=== PATIENT | female | born 1945 | race Caucasian/White ===

== ENCOUNTER 2019-09-16 14:42 | Inpatient (IN) | payer OTHER, MEDICARE ==
[~2019-09-16] VITALS: Ht 165.1 cm; Wt 93.9 kg
--- NOTE | 2019-09-16 14:50 | NUR ---
73 Y/O FEMALE PRESENTED TO ED C/O LOWER LEFT FLANK TO ABDOMEN PAIN. PT RATES PAIN 7/10, DESCRIBES PAIN STABBING / BURNING SENSATION. PT STATES SHE THOUGHT IT WAS A UTI AND HAS HX OF UTI BUT WOKE UP THIS MORNING AND IT HAD MOVED FROM HER LEFT FLANK TO HER ABDOMEN. PT DENIES N/V/D/F. PT DENIES DYSURIA. PT RESTING IN BED AT LOWEST POSITION, HOB ELEVATED, SIDE RAILS X1. PMH: HTN, ANXIETY, RX: LISINOPRIL, ATENTOLOL, (STATIN - PT UNSURE NAME), ATIVAN AX: CODEINE
--- NOTE | 2019-09-16 14:58 | NUR ---
PT AMB TO BED 4. HANDED ON URINE CUP.
--- NOTE | 2019-09-16 15:05 | NUR ---
PA AT BEDSIDE EVALUATING PT
[2019-09-16] MEDS ORDERED: KETOROLAC 60 MG/2 ML VIAL IM ONE (15:10)
[2019-09-16 15:55] LABS: BASOPHILS % (AUTO) 0.5 % (0.0-2.0); EOSINOPHILS # (AUTO) 0.2 K/uL (0-0.4); EOSINOPHILS % (AUTO) 2.3 % (0.0-4.0); HEMATOCRIT 43.8 % (36-48); HEMOGLOBIN 14.4 g/dL (12.0-16.0); LYMPHOCYTES # (AUTO) 1.9 K/uL (2.5-16.5); LYMPHOCYTES % (AUTO) 21.8 % (20.5-51.1); MEAN CORPUSCULAR HEMOGLOBIN 29 pg (27-31); MEAN CORPUSCULAR HGB CONC 33 g/dL (33-37); MEAN CORPUSCULAR VOLUME 86.5 fL (80-94); MONOCYTES # (AUTO) 0.4 K/uL (0.8-1.0); MONOCYTES % (AUTO) 4.9 % (1.7-9.3); NEUTROPHILS % (AUTO) 70.5 % (42.2-75.2); PLATELET COUNT (AUTO) 214 K/uL (140-450); RED BLOOD CELL COUNT(AUTO) 5.06 MIL/uL (4.20-5.40); RED CELL DISTRIBUTION WIDTH 14.2 % (11.6-13.7); WHITE BLOOD COUNT (AUTO) 8.5 K/uL (4.8-10.8)
[2019-09-16 16:06] LABS: APPEARANCE,URINE CLEAR (CLEAR); BILIRUBIN,URINE NEGATIVE (NEGATIVE); BLOOD, URINE 3+ (NEGATIVE); COLOR,URINE YELLOW (YELLOW); LEUKOCYTE ESTERASE ,URINE NEGATIVE (NEGATIVE); NITRITE, URINE NEGATIVE (NEGATIVE); UGLUCOSE NEGATIVE (NEGATIVE)
[2019-09-16 16:07] LABS: ALBUMIN 3.8 g/dL (3.4-5.0); ANION GAP 11.5 (8-16); ASPARTATE AMINOTRANSFERASE 13 U/L (15-37); CARBON DIOXIDE 27.1 mmol/L (21-32); CHLORIDE 104 mmol/L (98-107); CREATININE 0.9 mg/dL (0.6-1.3); GLUCOSE 108 mg/dL (74-106); LIPASE 113 U/L (73-393); POTASSIUM 3.6 mmol/L (3.5-5.1); SODIUM SERUM 139 mmol/L (136-145); TOTAL BILIRUBIN 0.4 mg/dL (0.0-1.0); UREA NITROGEN, BLOOD 21 mg/dL (7-18)
[2019-09-16 16:33] LABS: RBC,URINE >100 /HPF (0-5)
[2019-09-16 16:34] LABS: WBC,URINE 0-5 /HPF (0-5)
[2019-09-16] MEDS: NACL 0.9% 1,000 ML IV SCH ×2 (16:56→23:36)
--- NOTE | 2019-09-16 16:56 | NUR ---
PT RESTING IN BED AT LOWEST POSITION, HOB ELEVATED, SIDE RAILS X 1.
[2019-09-16] MEDS ORDERED: DOCUSATE SODIUM 100 MG GELCAP PO PRN (17:00)
[2019-09-16] MEDS ORDERED: ACETAMINOPHEN 325 MG TAB PO PRN (17:00)
[2019-09-16] MEDS ORDERED: ONDANSETRON 4 MG/2 ML VIAL IM/IVP PRN (17:00)
[2019-09-16] MEDS ORDERED: LISI-420 PO (17:17)
[2019-09-16] MEDS ORDERED: METO25TE2 PO (17:17)
[2019-09-16] MEDS ORDERED: ASPI81CT95 PO (17:17)
[2019-09-16] MEDS ORDERED: PRAV20TA5 PO (17:17)
[2019-09-16] MEDS ORDERED: ATI.5 PO (17:17)
[2019-09-16] MEDS ORDERED: ORE25 PO (17:17)
[2019-09-16] MEDS ORDERED: KETOROLAC 15 MG/ML VIAL IM PRN (17:20)
[2019-09-16 17:42] LABS: PROTHROMBIN TIME 9.3 secs (10.8-13.4)
[2019-09-16] MEDS ORDERED: METO25TA PO (18:00)
[2019-09-16] MEDS ORDERED: TAMSULOSIN 0.4 MG CAP PO SCH (18:00)
[2019-09-16 18:07] LABS: CHOL/HDL RATIO 5.1 (1-4.5); PHOSPHORUS 3.8 mg/dL (2.5-4.9)
[2019-09-16] MEDS ORDERED: LORazepam 1 MG TAB PO ONE (18:10)
--- NOTE | 2019-09-16 18:11 | NUR ---
RECEIVED BEDSIDE REPORT FROM ER NURSE. AOX4, NO SOB, FLACC 0, RESPIRATIONS ARE EVEN UNLABORED. SKIN INTACT. PT IS AMBULATORY. ON RA. IV INTACT AND PATENT. IV SITE RH 20G. PLAN OF CARE UPDATED. SAFETY MEASURES IN PLACE. BED IN LOW POSITION. CALL LIGHT WITHIN REACH. WILL CONTINUE TO MONITOR.
--- NOTE | 2019-09-16 18:18 | NUR ---
Patient will be admitted to care of DR. GARCES. Admited to TELEMETRY. Will go to room 108B. Belongings list completed. Report to ALEXIS ORTIZ.
[2019-09-16 18:25] LABS: BARBITURATE, URINE NEGATIVE ng/ml (NEG <=200); BENZODIAZEPINE, URINE POSITIVE ng/mL (NEG <=200); CANNABINOID, URINE NEGATIVE ng/mL (NEG <=50); COCAINE, URINE NEGATIVE ng/mL (NEG <=300); OPIATE, URINE NEGATIVE ng/mL (NEG <=2000); PHENCYCLIDINE SCREEN,URINE NEGATIVE ng/mL (NEG <=25)
--- NOTE | 2019-09-16 18:30 | NUR ---
STARTED ON NS 150CC/HR. ROCEPHIN IVPB GIVEN.
[2019-09-16 18:33] LABS: FREE T4 (FREE THYROXINE) 1.17 ng/dL (0.76-1.46); MAGNESIUM 1.8 mg/dL (1.8-2.4); THYROID STIMULATING HORMONE 3.47 uIU/mL (0.34-3.74)
--- NOTE | 2019-09-16 19:20 | NUR ---
RECEIVED REPORT FROM DAY SHIFT NURSE. PATIENT AWAKE, ALERT AND ORIENTED X 4. ON ROOM AIR. RESPIRATIONS EVEN AND UNLABORED. SKIN INTACT. WITH IV SITE PATENT AND INTACT WITH IVF DRAINING. NO PAIN OR DISTRESS NOTED. REVIEWED PLAN OF CARE TO PATIENT. PT VERBALIZED UNDERSTANDING. SAFETY MEASURES IN PLACE. CALL LIGHT WITHIN REACH. WILL CONTINUE TO MONITOR PATIENT.
--- NOTE | 2019-09-16 19:55 | NUR ---
EKG COMPLETED. RESULT TRANSFERRED AND A COPY PLACED IN PATIENT'S FOLDER.
[2019-09-16 20:00] VITALS: BP 164/91
[2019-09-16] MEDS: METOPROLOL 25 MG TAB PO SCH (20:20)
[2019-09-16] MEDS: LISINOPRIL 20 MG TAB PO SCH (20:20)
[2019-09-16] MEDS: ASPIRIN 81 MG TAB.CHEW PO SCH (20:20)
[2019-09-16] MEDS: SIMVASTATIN 10 MG TAB PO SCH (20:25)
--- NOTE | 2019-09-16 20:25 | NUR ---
ALL SCHEDULED PO MEDICATIONS GIVEN. PATIENT TOLERATED WELL. NO ADVERSE EFFECT NOTED. WILL CONTINUE TO MONITOR PT.
[2019-09-16] MEDS ORDERED: LORATADINE 10 MG TAB PO SCH (21:00)
--- NOTE | 2019-09-16 23:40 | NUR ---
PATIENT IS SLEEPING COMFORTABLY WITH NO DISTRESS NOTED. ON ROOM AIR, RESPIRATIONS EVEN AND UNLABORED. WILL CONTINUE TO MONITOR PATIENT.
[2019-09-17] VITALS: BP 146/66
[2019-09-17] MEDS: MORPHINE SULFATE 2 MG/ML SYR IVP PRN (02:39)
--- NOTE | 2019-09-17 02:39 | NUR ---
GIVEN MORPHINE 1MG FOR LEFT FLANK PAIN 11/29. PT TOLERATED WELL. WASTED 1MG.
[2019-09-17 04:00] VITALS: BP 158/61
--- NOTE | 2019-09-17 04:00 | NUR ---
VITAL SIGNS CHECKED. PAIN REDUCED TO 2/10. PATIENT IS AWAKE, ABOUT TO SLEEP AGAIN. NO DISTRESS NOTED. ON ROOM AIR, RESPIRATIONS EVEN AND UNLABORED. WILL CONTINUE TO MONITOR PATIENT.
--- NOTE | 2019-09-17 04:45 | NUR ---
NOTICED THE CONSENT FOR PROCEDURE IS NOT PRESENT. REPORTED TO RESIDENT AND ASKED IF RN SHOULD GET THE CONSENT. DR. PATIÑO WANT TO WAIT UNTIL SURGEON COMES IN THE MORNING.
[2019-09-17] MEDS: NACL 0.9% 1,000 ML IV SCH (06:19)
[2019-09-17 06:28] LABS: BASOPHILS % (AUTO) 0.7 % (0.0-2.0); EOSINOPHILS # (AUTO) 0.1 K/uL (0-0.4); EOSINOPHILS % (AUTO) 1.4 % (0.0-4.0); HEMATOCRIT 39.5 % (36-48); HEMOGLOBIN 13.1 g/dL (12.0-16.0); LYMPHOCYTES # (AUTO) 1.4 K/uL (2.5-16.5); MEAN CORPUSCULAR HEMOGLOBIN 28 pg (27-31); MEAN CORPUSCULAR HGB CONC 33 g/dL (33-37); MEAN CORPUSCULAR VOLUME 85.7 fL (80-94); MONOCYTES # (AUTO) 0.3 K/uL (0.8-1.0); MONOCYTES % (AUTO) 5.6 % (1.7-9.3); NEUTROPHILS # (AUTO) 4.2 K/uL (1.8-7.7); NEUTROPHILS % (AUTO) 69.3 % (42.2-75.2); PLATELET COUNT (AUTO) 172 K/uL (140-450); RED BLOOD CELL COUNT(AUTO) 4.61 MIL/uL (4.20-5.40); RED CELL DISTRIBUTION WIDTH 14.6 % (11.6-13.7); WHITE BLOOD COUNT (AUTO) 6.1 K/uL (4.8-10.8)
[2019-09-17 06:47] LABS: ANION GAP 11.2 (8-16); CARBON DIOXIDE 28.3 mmol/L (21-32); CHLORIDE 106 mmol/L (98-107); CREATININE 0.7 mg/dL (0.6-1.3); GLUCOSE 93 mg/dL (74-106); POTASSIUM 3.5 mmol/L (3.5-5.1); SODIUM SERUM 142 mmol/L (136-145); UREA NITROGEN, BLOOD 16 mg/dL (7-18)
[2019-09-17 06:48] LABS: MAGNESIUM 1.8 mg/dL (1.8-2.4); PHOSPHORUS 3.5 mg/dL (2.5-4.9)
--- NOTE | 2019-09-17 06:59 | NUR ---
PT IN STABLE CONDITION. WILL ENDORSE PT TO DAY SHIFT NURSE FOR CONTINUOUS CARE.
--- NOTE | 2019-09-17 07:05 | NUR ---
RECEIVED PATIENT FROM NIGHT NURSE. PATIENT IS ALERT AND AWAKE. PATIENT IS ON RA, NO RESPIRATORY DISTRESS, BREATHING UNLABORED. BED IS LOW, CALL LIGHT WITHIN REACH. PLAN OF CARE DISCUSSED WITH PATIENT AND PATIENT VERBALIZED UNDERSTANDING. WILL CONTINUE TO MONITOR.
[2019-09-17] MEDS ORDERED: ONDANSETRON 4 MG/2 ML VIAL ONE (07:25)
[2019-09-17] MEDS ORDERED: PROPOFOL 200 MG/20 ML VIAL IV ONE (07:25)
[2019-09-17] MEDS ORDERED: fentaNYL 0.05 MG/ML VIAL ONE (07:25)
[2019-09-17] MEDS ORDERED: SEVOFLURANE 250 ML BTL INH ONE (07:25)
[2019-09-17] MEDS ORDERED: MIDAZOLAM 2 MG/2 ML VIAL ONE (07:25)
--- NOTE | 2019-09-17 07:25 | NUR ---
PATIENT WENT TO OR FOR PROCEDURE. PATIENT LEFT IN STABLE CONDITION. Addendum: 09/17/19 at 0743 by Mary Velasquez RN CONSENT WILL BE OBTAINED IN THE OR PER OR NURSES.
[2019-09-17 08:00] VITALS: BP 186/70
[2019-09-17] MEDS ORDERED: ONDANSETRON 4 MG/2 ML VIAL IVP PRN (08:30)
[2019-09-17] MEDS ORDERED: LACTATED RINGERS 1,000 ML IV SCH (08:30)
[2019-09-17] MEDS ORDERED: diphenhydrAMINE 50 MG/ML VIAL IVP PRN (08:30)
[2019-09-17] MEDS ORDERED: HYDROmorphone 1 MG/ML AMP IVP PRN ×2 (08:30→11:05)
[2019-09-17] MEDS ORDERED: HYDROCHLOROTHIAZIDE 25 MG TAB PO SCH ×2 (09:00→13:01)
[2019-09-17] MEDS ORDERED: PANTOPRAZOLE 40 MG TABEC PO ONE (09:00)
--- NOTE | 2019-09-17 09:00 | NUR ---
RECEIVED PT. FROM OR NURSETALHA. PT. ABLE TO AMBULATE TOWARDS BATHROOM, VERBALIZES NO PAIN AT THE MOMENT BUT COMPLAINS OF URINARY URGENCY. URINE IS BLOOD TINGE. V/S TAKEN BP 186/70, O2 STAT 91%, TEMP 97.8F, HR 76, RR 20. NO SIGNS OF DISTRESS NOTED. WILL CONTINUE TO MONITOR.
--- NOTE | 2019-09-17 09:15 | NUR ---
PATIENT HAS BEEN SCREENED AND CATEGORIZED MODERATE NUTRITION RISK. PATIENT WILL BE SEEN WITHIN 3-5 DAYS OF ADMISSION. 09/19/19 09/21/[address]
[2019-09-17] MEDS: LACTOBACILLUS RHAMNOSUS GG 1 EACH CAP PO SCH (09:31)
[2019-09-17] MEDS: METOPROLOL 25 MG TAB PO SCH ×2 (09:33→21:15)
[2019-09-17] MEDS: LISINOPRIL 20 MG TAB PO SCH ×2 (09:33→21:15)
[2019-09-17] MEDS: TAMSULOSIN 0.4 MG CAP PO SCH (09:34)
[2019-09-17] MEDS: LORATADINE 10 MG TAB PO SCH (09:34)
[2019-09-17] MEDS: ASPIRIN 81 MG TAB.CHEW PO SCH (09:34)
[2019-09-17] MEDS: KETOROLAC 15 MG/ML VIAL IM PRN ×2 (09:35→21:52)
--- NOTE | 2019-09-17 09:45 | NUR ---
PT. COMPLAINS OF BLADDER PAIN 10/29. WILL MEDICATE WITH TORADOL IVP. WILL CONTINUE TO MONITOR.
--- NOTE | 2019-09-17 09:51 | NUR ---
MORNING MEDICATIONS GIVEN. NO SIGNS OF DISTRESS. BP 186/70, HR 84. WILL CONTINUE TO MONITOR.
--- NOTE | 2019-09-17 10:59 | NUR ---
DISCHARGE PLANNING: THIS IS A 73 Y/O FEMALE PATIENT FROM HOME, WHO CAME IN DUE TO BACK PAIN. PAST MEDICAL HISTORY INCLUDE OBESITY, HTN, GERD, HIATAL HERNIA, SKIN CANCER AND RECURRENT UTI'S. INITIAL DIAGNOSIS OF OBSTRUCTIVE UROPATHY. CURRENT LABS WNL. CT ABD/PELVIS ON ADMISSION SHOWED OBSTRUCTING CALCULUS AT THE LEFT URETEROPELVIC JUNCTION. CXR SHOWED MILD LEFT BASILAR ATELECTASIS. S/P LEFT URETERAL STENT PLACEMENT BY DR. DONG. DC PLAN BACK TO HOME ONCE STABLE
--- NOTE | 2019-09-17 11:20 | NUR ---
SPOKE TO DR. BULLOCK ABOUT PT'S PERSISTENT HIGH SBP 188/75 AND BLADDER PAIN OF 6/10. NEW ORDERS TO GIVE DILAUDID 0.5MG IVP AND STOP NS FLUID FOR 3 HOURS. WILL FOLLOW THROUGH.
--- NOTE | 2019-09-17 11:30 | NUR ---
DILAUDID IVP GIVEN FOR BLADDER PAIN OF 09/29. BP 174/86, HR 71. PT. VERBALIZES DIZZINESS RIGHT AFTER. WILL REASSESS AFTER 5 MINS.
--- NOTE | 2019-09-17 11:35 | NUR ---
REASSESS PT., NO SIGNS OF DISTRESS NOTED. PT. VERBALIZES LESSER PAIN AND DIZZINESS. WILL CONTINUE TO MONITOR.
[2019-09-17 12:00] VITALS: BP 152/60
--- NOTE | 2019-09-17 12:50 | NUR ---
SPOKE TO DR ACHARYA TO POSSIBLE DISCHARGE TODAY PER DR DONG RECOMMENDATION. DR ACHARYA SUGGESTED PATIENT TO STAY ANOTHER NIGHT TO CONTINUE MONITORING HER LABS AND VITAL SIGNS. PATIENT IS AWARE AND VERBALIZED UNDERSTANDING. WILL CONTINUE TO MONITOR.
--- NOTE | 2019-09-17 12:55 | NUR ---
PATIENT'S DAUGHTER, VÍCTOR MADE AWARE OF DISCHARGE PLANNING. DAUGHTER VERBALIZED UNDERSTANDING. WILL CONTINUE TO MONITOR.
[2019-09-17] MEDS ORDERED: hydrALAZINE 20 MG/ML VIAL IVP PRN (13:15)
--- NOTE | 2019-09-17 15:39 | NUR ---
JEWELRY DESIGNER NOTE: Basic Screen: Yes High Risk DC Screen [place]: [place] Relationship: Pre-Admission Living Arrangements: Lives with Other Prior ADL Independent Current Home Health Name/Tel: N/A Current DME/02 Name/Tel: N/A Current Hospice Name/Tel: N/A Current Dialysis Name/Tel: /A Healthcare Decision Maker: Patient Advance Directive No Physician Orders for Life Sustaining Treatment Form No Patient/Family Have Educational Needs No Discipline: Case Mgt/Social Svcs Tentative Discharge Plan/Destination: No Needs Identified Will require assistance post discharge: No Referred to Manager Intensive Care: No Tentative Discharge Plan Summary: PATIENT IS A 73-YEAR-OLD FEMALE ADMITTED FOR OBSTRUCTIVE UROPATHY. PATIENT HAS PMHX OF OBESITY, HTN, TIM, GERD, HIATAL HERNIA, DYSLIPEDEMIA, RECURRENT UTIS, AND SKIN CANCER. PATIENT WAS ADMITTED FROM HOME WHERE HE LIVES WITH AND DAUGHTER. SW MET WITH PATIENT AT BEDSIDE TO VERIFY DEMOGRAPHICS. PER PATIENT, SHE IS INDEPENDENT WITH ALL ADLS AND REPORTS NO HISTORY OF SUBSTANCE ABUSE OR MENTAL HEALTH. TENTATIVE DISCHARGE PLAN IS FOR PATIENT TO RETURN HOME. NO FURTHER NEEDS IDENTIFIED. Signature: BOB VALENZUELA Date: September 17, 2019 Time: 15:38
[2019-09-17 16:00] VITALS: BP 143/74
--- NOTE | 2019-09-17 16:30 | NUR ---
PT. VERBALIZES CONCERN ON PERSISTENT HEMATURIA. INFORMED DR. ACHARYA ABOUT THE ISSUE. DR. ACHARYA CLAIMS THAT IT IS NORMAL AFTER PROCEDURE. WILL INFORM PT. AND CONTINUE TO MONITOR.
--- NOTE | 2019-09-17 17:00 | NUR ---
DR. DONG ON THE PHONE WITH PT. NEW ORDERS GIVEN FOR BLADDER PAIN. WILL CONTINUE TO MONITOR.
[2019-09-17] MEDS: PHENAZOPYRIDINE 100 MG TAB PO PRN (18:17)
--- NOTE | 2019-09-17 18:20 | NUR ---
PYRIDIUM PO GIVEN FOR BLADDER PAIN OF 4/10. NO SIGNS OF DISTRESS NOTED. SIDE EFFECTS OF MEDICATION TAUGHT TO PT. PT. VERBALIZES UNDERSTANDING. WILL CONTINUE TO MONITOR.
--- NOTE | 2019-09-17 19:07 | NUR ---
PATIENT ENDORSED TO NIGHT NURSE. PATIENT IN STABLE CONDITION.
[2019-09-17 20:00] VITALS: BP 147/83
[2019-09-17] MEDS: SIMVASTATIN 10 MG TAB PO SCH (21:15)
--- NOTE | 2019-09-17 21:15 | NUR ---
DUE PO MEDICATIONS GIVEN.
--- NOTE | 2019-09-17 21:35 | NUR ---
COMPLAINED OF MOSQUITOES OR BUGS BITING HER. SHOWED SOME ROUND REDNESS (2) IN HER LEFT LEG AND STATED HER LEFT LATERAL ASPECT OF HER FOOT HAVE SOME ITCHINESS. WILL INFORM .
[2019-09-17] MEDS ORDERED: DIPHENHYDRAMINE HCL/ZINC ACET 28 GM TUBE TP PRN (21:40)
[2019-09-18] VITALS: BP 145/74
[2019-09-18] MEDS: MORPHINE SULFATE 2 MG/ML SYR IVP PRN ×3 (00:16→08:45)
[2019-09-18] MEDS ORDERED: KETOROLAC 15 MG/ML VIAL IM/IVP PRN (00:30)
[2019-09-18] MEDS ORDERED: LORazepam 1 MG TAB PO PRN (00:30)
--- NOTE | 2019-09-18 00:33 | NUR ---
Patient's Plan of Care was discussed and reviewed with REORDERING CLERK: NATASHA GUILLEN
[2019-09-18] MEDS: PHENAZOPYRIDINE 100 MG TAB PO PRN (00:46)
--- NOTE | 2019-09-18 01:12 | NUR ---
WITH ANXIETY, MEDICATED WITH ATIVAN PO ORDERED BY .
--- NOTE | 2019-09-18 02:10 | NUR ---
NO ANXIETY, SLEEPING COMFORTABLY IN BED.
[2019-09-18 04:00] VITALS: BP 141/72
--- NOTE | 2019-09-18 06:00 | NUR ---
AWAKE IN BED, DUE PO MEDICATION GIVEN.
[2019-09-18] MEDS ORDERED: PANTOPRAZOLE 40 MG TABEC PO SCH (06:30)
--- NOTE | 2019-09-18 06:30 | NUR ---
CONDITION REMAIN STABLE. COMPLAINT OF ABDOMINAL PAIN ATTENDED PROMPTLY, MEDICATED ORDERED. WILL ENDORSE TO AM SHIFT NURSE FOR CONTINUITY OF CARE.
--- NOTE | 2019-09-18 07:05 | NUR ---
RECEIVED PATIENT FROM LEAF SIZE PICKER NURSE FOR CONTINUITY OF CARE. PATIENT IS CURRENTLY SLEEPING. NO SIGNS OF DISTRESS NOTED. RESPIRATIONS EVEN AND UNLABORED, ROOM AIR. VISIBLE CHEST RISE AND FALL NOTED. MED-SURG. ABDOMEN SOFT AND NONTENDER. SKIN WARM, DRY, AND INTACT. IV ON THE RIGHT HAND G20, SALINE LOCK. PATIENT IS CONTINENT. URINE STRAINING ORDERED. HAT IN PLACE. S/P CYSTOSCOPY WITH DR. DONG YESTERDAY 09/16. PER PM NURSE, PATIENT HAD [address] CHIRINOS WAS AWARE. AMBULATORY. UNIVERSAL FALL PRECAUTION. BED IN LOW POSITION. CALL LIGHT IS WITHIN REACH. WILL CONTINUE TO MONITOR.
[2019-09-18 07:10] LABS: BASOPHILS % (AUTO) 0.2 % (0.0-2.0); EOSINOPHILS # (AUTO) 0.2 K/uL (0-0.4); HEMATOCRIT 38.8 % (36-48); LYMPHOCYTES # (AUTO) 1.3 K/uL (2.5-16.5); LYMPHOCYTES % (AUTO) 17.5 % (20.5-51.1); MEAN CORPUSCULAR HEMOGLOBIN 29 pg (27-31); MEAN CORPUSCULAR HGB CONC 34 g/dL (33-37); MEAN CORPUSCULAR VOLUME 86.1 fL (80-94); MONOCYTES # (AUTO) 0.4 K/uL (0.8-1.0); MONOCYTES % (AUTO) 5.8 % (1.7-9.3); NEUTROPHILS # (AUTO) 5.6 K/uL (1.8-7.7); NEUTROPHILS % (AUTO) 74.5 % (42.2-75.2); PLATELET COUNT (AUTO) 176 K/uL (140-450); RED BLOOD CELL COUNT(AUTO) 4.51 MIL/uL (4.20-5.40); RED CELL DISTRIBUTION WIDTH 14.3 % (11.6-13.7); WHITE BLOOD COUNT (AUTO) 7.5 K/uL (4.8-10.8)
[2019-09-18 07:28] LABS: MAGNESIUM 1.7 mg/dL (1.8-2.4)
[2019-09-18 07:29] LABS: ANION GAP 10.9 (8-16); CARBON DIOXIDE 29.4 mmol/L (21-32); CHLORIDE 101 mmol/L (98-107); CREATININE 0.8 mg/dL (0.6-1.3); GLUCOSE 108 mg/dL (74-106); POTASSIUM 3.3 mmol/L (3.5-5.1); SODIUM SERUM 138 mmol/L (136-145); UREA NITROGEN, BLOOD 14 mg/dL (7-18)
--- NOTE | 2019-09-18 07:49 | NUR ---
DR. GARCES AND THE RESIDENT DOCTORS MADE ROUNDS
--- NOTE | 2019-09-18 07:59 | NUR ---
DR. DONG AT BEDSIDE
[2019-09-18 08:00] VITALS: BP 150/73
[2019-09-18] MEDS: TAMSULOSIN 0.4 MG CAP PO SCH (08:20)
[2019-09-18] MEDS: LORATADINE 10 MG TAB PO SCH (08:21)
[2019-09-18] MEDS: LACTOBACILLUS RHAMNOSUS GG 1 EACH CAP PO SCH (08:23)
[2019-09-18] MEDS: LISINOPRIL 20 MG TAB PO SCH (08:23)
[2019-09-18] MEDS: METOPROLOL 25 MG TAB PO SCH (08:23)
[2019-09-18] MEDS ORDERED: CRUSHER, PILL MC ONE (08:24)
--- NOTE | 2019-09-18 08:25 | NUR ---
PT RECEIVED AM MEDICATION PER MD ORDER. MED EDUCATION PROVIDED TO PT, PT VERBALIZED UNDERSTANDING. PT TOLERATED PO MEDICATIONS WELL. PT COMPLAINED ABOUT PAIN, STATED "MY ABDOMINAL IS HURTING BADLY, I NEED MY PAIN MEDICATION." PAIN IS 8/10. EDUCATED PT ABOUT RELAXING METHOD AND INFORMED PT THAT PRN PAIN MEDICATION IS NOT DUE YET, WILL GIVE IT TO PT WHEN IT'S DUE. PT VERBALIZED UNDERSTANDING, AND RESTING ON BED AT THIS TIME. CELL LIGHT WITHIN REACH, BED LOCKED, IN LOW POSITION. ALL SAFETY MEASURES IN PLACE. WILL CONTINUE TO MONITOR.
--- NOTE | 2019-09-18 08:45 | NUR ---
GIVEN MORPHINE FOR ABDOMINAL PAIN 11/29. EXPLAINED MEDICATION. PATIENT VERBALIZED UNDERSTANDING. WILL REASSESS PAIN
[2019-09-18] MEDS ORDERED: HYDROCHLOROTHIAZIDE 25 MG TAB PO SCH ×2 (09:00)
[2019-09-18] MEDS ORDERED: OXYBUTYNIN 5 MG TAB PO PRN (09:00)
[2019-09-18] MEDS ORDERED: ASPIRIN 81 MG TAB.CHEW PO SCH (09:00)
--- NOTE | 2019-09-18 09:45 | NUR ---
PAIN REASSESSED. PATIENT ASLEEP. WILL CONTINUE TO MONITOR
[2019-09-18] MEDS ORDERED: MAG SULF 2000 MG/WATER PREMIX 50 ML IV SCH (10:15)
[2019-09-18] MEDS: HYDROCHLOROTHIAZIDE 25 MG TAB PO SCH ×2 (10:15→10:21)
[2019-09-18] MEDS ORDERED: POTASSIUM CHLORIDE 10 MEQ TABER PO SCH (10:15)
--- NOTE | 2019-09-18 10:21 | NUR ---
BARRY MAG-RIDER FOR MAGNESIUM LEVEL OF 1.7. KDUR GIVEN PO FOR K LEVEL OF 3.3. ORETIC 0.5 MG PER MD ORDER GIVEN. MEDICATION EDUCATION GIVEN. PATIENT VERBALIZED UNDERSTANDING. BED IN LOW POSITION. CALL LIGHT IS WITHIN REACH. WILL CONTINUE TO MONITOR. Addendum: 09/18/19 at 1110 by Princess Lisa Cantu RN BP 145/65, HR 85
[2019-09-18] MEDS ORDERED: LACT10CA1 PO (10:36)
[2019-09-18] MEDS ORDERED: ORE25 PO (10:36)
[2019-09-18] MEDS ORDERED: PHEN-1749 PO (10:36)
[2019-09-18] MEDS ORDERED: IBUP-2213 PO (10:36)
[2019-09-18] MEDS ORDERED: SULF-59 PO (10:36)
[2019-09-18] MEDS ORDERED: ASPI81CT95 PO (11:13)
--- NOTE | 2019-09-18 11:36 | NUR ---
PATIENT C/O OF PAIN ON THE IV SITE WHERE MAG-RIDER IS RUNNING. LOWERED TO RATE FROM 25 TO 15 ML/HR. EXPLAINED TO PATIENT TO CALL ME IF PAIN PERSISTS. PATIENT VERBALIZED UNDERSTANDING. WILL CONTINUE TO MONITOR
--- NOTE | 2019-09-18 11:43 | NUR ---
PATIENT STILL COMPLAINING OF PAIN ON THE IV SITE. OFFERED TO LOWER THE MAG RIDER TO 10 ML/HR OR EVEN 5 ML/HR BUT PATIENT STATED SHE WANTS IT OUT, ABOUT A QUARTER LEFT IN THE BAG. DR. GUEVARA AWARE AND STATED IT'S OKAY
[2019-09-18 12:19] VITALS: BP 145/65
--- NOTE | 2019-09-18 13:15 | NUR ---
GIVEN DISCHARGE INSTRUCTIONS. EXPLAINED THAT SHE HAS APPT WITH DR. DONG ON September AT 10AM AND DR. MAYTE GRIFFIN ON SEPTEMBER 20 AT 10:15 AM. INFORMED THAT PRESCRIBED HER MEDICATIONS AND THEY ARE ALREADY SENT OUT TO [facility], SHE JUST NEEDS TO PICK THEM UP. PATIENT VERBALIZED UNDERSTANDING. PATIENT REFUSED VACCINATIONS. PATIENT SIGNED DISCHARGE PAPERWORK
--- NOTE | 2019-09-18 13:20 | NUR ---
DISCONTINUED IV. SECURED WITH 2X2 GAUZE AND TAPE. MINIMAL BLEEDING.
--- NOTE | 2019-09-18 13:21 | NUR ---
REMOVED ID BAND
--- NOTE | 2019-09-18 13:22 | NUR ---
DISCHARGED PATIENT ON FOOT. IS THE RIDE HOME. PATIENT DENIES SOB AND PAIN. PATIENT IS IN STABLE CONDITION
== END 2019-09-18 14:30 | disposition home or self-care (01) | DRG 661 ==
LOC: MED 14:42 → MTU 16:41
PROVIDERS: ADMIT General Practice; ATTEND General Practice
PROC: 0TBB8ZX Excision of Bladder, Via Natural or Artificial Opening Endoscopic, Diagnostic (ICD-10-PCS; 2019-09-17)
PROC: BT1F1ZZ Fluoroscopy of Left Kidney, Ureter and Bladder using Low Osmolar Contrast (ICD-10-PCS; 2019-09-17)
PROC: 0T778DZ Dilation of Left Ureter with Intraluminal Device, Via Natural or Artificial Opening Endoscopic (ICD-10-PCS; principal; 2019-09-17 07:30)
DX: N13.2 Hydronephrosis with renal and ureteral calculous obstruction (principal); K21.9 Gastro-esophageal reflux disease without esophagitis; I10 Essential (primary) hypertension; E66.9 Obesity, unspecified; E78.5 Hyperlipidemia, unspecified; F41.1 Generalized anxiety disorder; T78.40XA Allergy, unspecified, initial encounter; D41.4 Neoplasm of uncertain behavior of bladder; X58.XXXA Exposure to other specified factors, initial encounter; Z91.041 Radiographic dye allergy status; Z90.49 Acquired absence of other specified parts of digestive tract; Z68.34 Body mass index [BMI] 34.0-34.9, adult; Z85.828 Personal history of other malignant neoplasm of skin; Z98.51 Tubal ligation status
CPT/HCPCS: 36415; 71045; 80048; 80053; 80305; 81001; 82140; 82150; 83036; 83605; 83615; 83690; 83735; 83880; 84100; 84439; 84443; 84484; 85025; 85610; 85730; 87081; 87086; 88305; 96372; 99285; C1758; C1769; C1874; C2617; J0696; J1170; J1885; J2250; J2270; J2405; J2704; J3010; J3475; J7030; J7060; Q0092

== ENCOUNTER 2019-10-21 09:56 | Outpatient (CLI) | payer OTHER, MEDICARE ==
[~2019-10-21 09:56] MED LIST: ASPI81CT95 PO; ATI.5 PO; LACT10CA1 PO; LISI-420 PO; METO25TA PO; ORE25 PO; PHEN-1749 PO; PRAV20TA5 PO; SULF-59 PO
[2019-10-21 10:29] LABS: BASOPHILS % (AUTO) 0.7 % (0.0-2.0); EOSINOPHILS # (AUTO) 0.1 K/uL (0-0.4); EOSINOPHILS % (AUTO) 1.8 % (0.0-4.0); HEMATOCRIT 41.5 % (36-48); HEMOGLOBIN 13.5 g/dL (12.0-16.0); LYMPHOCYTES # (AUTO) 1.2 K/uL (2.5-16.5); LYMPHOCYTES % (AUTO) 19.6 % (20.5-51.1); MEAN CORPUSCULAR HEMOGLOBIN 28 pg (27-31); MEAN CORPUSCULAR HGB CONC 33 g/dL (33-37); MEAN CORPUSCULAR VOLUME 86.9 fL (80-94); MONOCYTES # (AUTO) 0.4 K/uL (0.8-1.0); MONOCYTES % (AUTO) 6.5 % (1.7-9.3); NEUTROPHILS # (AUTO) 4.5 K/uL (1.8-7.7); NEUTROPHILS % (AUTO) 71.4 % (42.2-75.2); PLATELET COUNT (AUTO) 210 K/uL (140-450); RED BLOOD CELL COUNT(AUTO) 4.77 MIL/uL (4.20-5.40); RED CELL DISTRIBUTION WIDTH 14.7 % (11.6-13.7); WHITE BLOOD COUNT (AUTO) 6.3 K/uL (4.8-10.8)
[2019-10-21 11:02] LABS: ALBUMIN 3.6 g/dL (3.4-5.0); ANION GAP 11.5 (8-16); ASPARTATE AMINOTRANSFERASE 17 U/L (15-37); CARBON DIOXIDE 30.4 mmol/L (21-32); CHLORIDE 99 mmol/L (98-107); CREATININE 0.7 mg/dL (0.6-1.3); GLUCOSE 108 mg/dL (74-106); POTASSIUM 3.9 mmol/L (3.5-5.1); SODIUM SERUM 137 mmol/L (136-145); TOTAL BILIRUBIN 0.5 mg/dL (0.0-1.0); UREA NITROGEN, BLOOD 13 mg/dL (7-18)
[2019-10-21 11:35] LABS: APPEARANCE,URINE CLEAR (CLEAR); BILIRUBIN,URINE NEGATIVE (NEGATIVE); BLOOD, URINE NEGATIVE (NEGATIVE); COLOR,URINE YELLOW (YELLOW); LEUKOCYTE ESTERASE ,URINE NEGATIVE (NEGATIVE); NITRITE, URINE POSITIVE (NEGATIVE); UGLUCOSE NEGATIVE (NEGATIVE)
[2019-10-21 12:31] LABS: RBC,URINE 0-5 /HPF (0-5); WBC,URINE 0-5 /HPF (0-5)
== END 2019-10-21 21:29 | disposition home or self-care (01) ==
LOC: MLB 09:56
PROVIDERS: ATTEND Urology
DX: N20.0 Calculus of kidney (principal); N39.0 Urinary tract infection, site not specified
CPT/HCPCS: 36415; 76770; 80053; 81001; 85025